=== PATIENT | male | born 1975 | race Caucasian/White ===

== ENCOUNTER 2019-07-06 20:09 | Inpatient (IN) | payer OTHER ==
[2019-07-06] MEDS ORDERED: ONDANSETRON 4 MG/2 ML VIAL ONE (21:09)
[2019-07-06] MEDS ORDERED: NA CHLORIDE 0.9% 1,000 ML ONE ×2 (21:09→23:44)
[2019-07-06] MEDS ORDERED: HYDROMORPHONE HCL 1 MG/ML INJ ONE (21:09)
[2019-07-06 21:35] LABS: Absolute Lymphocytes (CBC) 2.1 K/uL (0.7-4.9); Basophils % 0.7 % (0-1.3); Hematocrit 50.4 % (39.6-49.0); Lymphocytes % 22.8 % (15.3-44.8); MPV 8.1 fL (7.6-11.3)
[2019-07-06] MEDS ORDERED: KETOROLAC 30 MG/ML INJ ONE (21:44)
[2019-07-06 22:13] LABS: Albumin 4.7 g/dL (3.4-5.0); Bilirubin Direct 0.2 mg/dL (0-0.2); Bilirubin Total 0.5 mg/dL (0.2-1.0); Potassium 3.9 mmol/L (3.5-5.1); Protein, Total 8.2 g/dL (6.4-8.2)
[2019-07-06 22:32] LABS: Urine Blood TRACE (NEG); Urine Glucose NEGATIVE (NEG); Urine Protein NEGATIVE (NEG); Urine Specific Gravity <1.005 (1.005-1.030)
[2019-07-06 23:23] LABS: Urine Bacteria <20 /HPF (NONE SEEN); Urine Culture Reflex Order NOT NEEDED; Urine RBC NONE SEEN /HPF (NONE SEEN)
--- NOTE | 2019-07-06 23:32 | ER ---
Nurse's Notes [facility] Name: Abelino Doe Age: 43 yrs Sex: Male : 1975 Arrival Date: 07/06/2019 Time: 20:14 Bed 19 Private MD: Diagnosis: Alcohol induced acute pancreatitis Presentation: 07/06 20:40 Presenting complaint: Patient states: Bilateral lower back pain, nausea, vomiting, aj1 chest pain. Patient appears agitated in triage, screaming at staff. Transition of care: patient was not received from another setting of care. Onset of symptoms was July 06, 2019. Risk Assessment: Do you want to hurt yourself or someone else? Patient reports no desire to harm self or others. Initial Sepsis Screen: Does the patient meet any 2 criteria? HR > 90 bpm. No. Patient's initial sepsis screen is negative. Does the patient have a suspected source of infection? No. Patient's initial sepsis screen is negative. Care prior to arrival: None. 20:40 Method Of Arrival: Ambulatory aj1 20:40 Acuity: MELISSA 2 aj1 Historical: - Allergies: 20:42 PENICILLINS; aj1 07/07 00:40 Sulfa (Sulfonamide Antibiotics); lp1 - PMHx: 07/06 20:42 Kidney stones; Myocardial infarction; aj1 - PSHx: 20:42 Lithotripsy; aj1 - Immunization history:: Adult Immunizations up to date. - Ebola Screening: : Patient denies travel to an Ebola-affected area in the 21 days before illness onset. - Social history:: Smoking status: Patient/guardian denies using tobacco. Screenin:15 Abuse screen: Denies threats or abuse. Denies injuries from another. Nutritional lp1 screening: No deficits noted. Tuberculosis screening: No symptoms or risk factors identified. Fall Risk None identified. Assessment: 21:00 General: Appears uncomfortable, Behavior is agitated, restless. Pain: Complains of pain lp1 in left low back and right low back Pain radiates to chest Pain currently is 10 out of 10 on a pain scale. Quality of pain is described as sharp, stabbing, Pain began gradually. Neuro: Level of Consciousness is awake, alert, obeys commands, Oriented to person, place, time, situation. Cardiovascular: Patient's skin is warm and dry. Respiratory: Respiratory effort is even, unlabored. GI: No signs and/or symptoms were reported involving the gastrointestinal system. : Reports burning with urination. EENT: No signs and/or symptoms were reported regarding the EENT system. Derm: Skin is pink, warm \\T\\ dry. Musculoskeletal: No deficits noted. 22:15 Reassessment: Patient appears calm at this time; Taken to CT. lp1 22:43 Reassessment: ultrasound at bedside. lp1 23:00 Reassessment: Patient complaint of pain returning at this time; Provider notified, no lp1 new orders at this time. 23:30 Reassessment: JORGE LUIS Willoughby at bedside to discuss results with patient and . lp1 Reassessment: Patient agitated after speaking with Provider; attempted to explain diagnosis to patient; Patient states "My pain is caused from my kidney stones and y'all aren't doing anything about it"; Informed of admission and diagnosis of pancreatitis, patient states "You know what, you can just get on out of here". 07/07 00:40 Reassessment: Attempted to call report at this time; nurse unavailable to take report. lp1 00:57 Reassessment: Attempted to call report to nurse, unavailable to take report. lp1 01:17 Reassessment: Patient noted to be eating chips at this time; Educated on NPO status, lp1 states "well I was hungry, I had to eat something". Vital Signs: 07/06 20:42 BP 166 / 143; Pulse 126; Resp 28; Temp 98.2; Pulse Ox 98% on R/A; Weight 72.57 kg (R); aj1 Height 5 ft. 9 in. (175.26 cm); Pain 10/10; 23:15 BP 141 / 95; Pulse 98; Resp 18; Temp 97.7(O); Pulse Ox 96% on R/A; Pain 10/10; lp1 07/07 01:32 BP 137 / 95; Pulse 90; Resp 18; Pulse Ox 97% on R/A; lp1 07/06 20:42 Body Mass Index 23.63 (72.57 kg, 175.26 cm) aj1 ED Course: 07/06 20:14 Patient arrived in ED. cl3 20:39 Pavithra Hayes, RN is Primary Nurse. aj1 20:41 Triage completed. aj1 20:42 Arm band placed on Patient placed in an exam room. aj1 20:44 Anthony Mansfield PA is PHCP. cp 20:44 Mynor Marks MD is Attending Physician. cp 21:00 Patient has correct armband on for positive identification. Pulse ox on. NIBP on. lp1 21:00 Patient maintains SpO2 saturation greater than 95% on room air. lp1 21:23 Initial lab(s) drawn, by me, sent to lab. Inserted saline lock: 20 gauge in right lt1 antecubital area, using aseptic technique. 22:44 CT completed. Patient tolerated procedure well. Patient moved back from CT. mw3 22:45 CT Stone Protocol In Process Unspecified. EDMS 22:57 Ultrasound completed. Patient tolerated well. Notified STAFF RESEARCH ASSOCIATE/PA . sg3 22:58 US Abdomen Limited: right upper quadrant In Process Unspecified. EDMS 23:31 Clayton Mendes MD is Hospitalizing Provider. cp 23:37 No provider procedures requiring assistance completed. Patient admitted, IV remains in lp1 place. Administered Medications: 21:20 Drug: Zofran 4 mg Route: IVP; Site: right antecubital; fc 22:00 Follow up: Response: No adverse reaction lp1 21:20 Drug: NS 0.9% 1000 ml Route: IV; Rate: 1 bolus; Site: right antecubital; fc 22:45 Follow up: IV Status: Completed infusion; IV Intake: 1000ml lp1 21:24 Drug: Dilaudid 1 mg {Note: RASS 0.} Route: IVP; Site: right antecubital; fc 22:00 Follow up: Response: Pain is unchanged, physician notified lp1 21:46 Drug: TORadol 30 mg Route: IVP; Site: right antecubital; fc 22:44 Follow up: Response: Pain is decreased lp1 23:58 Drug: Dilaudid 0.5 mg {Note: Rass score 0.} Route: IVP; Site: right antecubital; jb4 07/07 01:00 Follow up: Response: No adverse reaction; Pain is decreased; RASS: Alert and Calm (0) lp1 00:00 Drug: NS 0.9% 1000 ml Route: IV; Rate: 1 bolus; Site: right antecubital; jb4 01:00 Follow up: IV Status: Completed infusion; IV Intake: 1000ml lp1 Intake: 07/06 22:45 IV: 1000ml; Total: 1000ml. lp1 07/07 01:00 IV: 1000ml; Total: 2000ml. lp1 Outcome: 07/06 23:32 Decision to Hospitalize by Provider. cp 23:41 Condition: stable lp1 23:41 Instructed on the need for admit. 07/07 01:17 Admitted to Tele accompanied by tech, via wheelchair, room 427, with chart, Report lp1 called to LUZ Rivera 01:33 Patient left the ED. lp1 Signatures: Dispatcher [employer] EDMS Pavithra Hayes RN RN aj1 Betsy Remy RN RN Demetra Ordonez RN RN lp1 Anthony Mansfield PA PA cp Bryson, James RN RN jb4 Leonel, Martha sg3 Rachael Frederick mw3 Sonia, Misty lt1 Ruby Pichardo cl3 Corrections: (The following items were deleted from the chart) 07/06 22:53 19:20 NS 0.9% 1000 ml IV at 1 bolus in right antecubital fc fc 22:54 19:20 Zofran 4 mg IVP in right antecubital fc fc 22:54 22:00 Response: No adverse reaction lp1 fc 22:55 19:24 Dilaudid 1 mg IVP in right antecubital fc fc 22:55 22:00 Response: No adverse reaction; Pain is unchanged, physician notified; RASS: fc Restless (+1) lp1
--- NOTE | 2019-07-06 23:33 | EDPHYS ---
Physician Documentation [facility] Name: Abelino Doe Age: 43 yrs Sex: Male : 1975 Arrival Date: 07/06/2019 Time: 20:14 Bed 19 Private MD: ED Physician Mynor Marks HPI: 07/06 21:10 This 43 yrs old Male presents to ER via Ambulatory with complaints of Chest cp Pain, Possible Kidney Stone. 21:10 The patient presents with pain that is chronic, with no known mechanism of injury, cp patient reports history of bilateral kidney stones. Onset: The symptoms/episode began/occurred last month. 21:10 Associated signs and symptoms: Pertinent positives: abdominal pain. Severity of cp symptoms: in the emergency department the symptoms are actually worse, markedly. Historical: - Allergies: 20:42 PENICILLINS; aj1 07/07 00:40 Sulfa (Sulfonamide Antibiotics); lp1 - PMHx: 07/06 20:42 Kidney stones; Myocardial infarction; aj1 - PSHx: 20:42 Lithotripsy; aj1 - Immunization history:: Adult Immunizations up to date. - Ebola Screening: : Patient denies travel to an Ebola-affected area in the 21 days before illness onset. - Social history:: Smoking status: Patient/guardian denies using tobacco. ROS: 21:20 Constitutional: Negative for body aches, chills, fever, poor PO intake. cp 21:20 Eyes: Negative for injury, pain, redness, and discharge. cp 21:20 Cardiovascular: Positive for chest pain, Negative for palpitations. cp 21:20 Respiratory: Negative for cough, shortness of breath, wheezing. 21:20 Abdomen/GI: Positive for abdominal pain, Negative for vomiting, diarrhea, constipation, black/tarry stool, rectal bleeding. 21:20 Back: Positive for pain at rest, pain with movement. 21:20 : Negative for urinary symptoms, testicular pain 21:20 Neuro: Negative for altered mental status, dizziness, headache, weakness. 21:20 All other systems are negative. Exam: 20:45 ECG was reviewed by the Attending Physician. cp 21:25 Head/Face: Normocephalic, atraumatic. cp 21:25 Eyes: Periorbital structures: appear normal, Conjunctiva: normal, no exudate, no cp injection, Sclera: no appreciated abnormality, Lids and lashes: appear normal, bilaterally. 21:25 ENT: External ear(s): are unremarkable, Nose: is normal, Mouth: Lips: moist, Oral mucosa: pink and intact, moist, Posterior pharynx: is normal, airway is patent, no erythema, no exudate. 21:25 Chest/axilla: Inspection: normal, Palpation: is normal, no crepitus, no tenderness. 21:25 Constitutional: The patient appears in no acute distress, alert, awake, cp non-diaphoretic, well developed, well nourished, agitated, restless, uncomfortable. 21:25 Cardiovascular: Rate: tachycardic, Rhythm: regular, Edema: is not appreciated, JVD: is not appreciated. 21:25 Respiratory: the patient does not display signs of respiratory distress, Respirations: normal, no use of accessory muscles, no retractions, no splinting, no tachypnea, labored breathing, is not present, Breath sounds: are clear throughout, no decreased breath sounds, no stridor, no wheezing. 21:25 Abdomen/GI: Inspection: abdomen appears normal, Bowel sounds: active, all quadrants, Palpation: soft, in all quadrants, severe abdominal tenderness, in the epigastric area, rebound tenderness, is not appreciated, voluntary guarding, is elicited in the epigastric area. 21:25 Back: pain, that is severe, of the mid back area, ROM is painful. 21:25 Skin: cellulitis, is not appreciated, no rash present. 21:25 Neuro: Orientation: to person, place \T\ time. Mentation: is normal, Motor: moves all fours, strength is normal. Vital Signs: 20:42 BP 166 / 143; Pulse 126; Resp 28; Temp 98.2; Pulse Ox 98% on R/A; Weight 72.57 kg (R); aj1 Height 5 ft. 9 in. (175.26 cm); Pain 10/10; 23:15 BP 141 / 95; Pulse 98; Resp 18; Temp 97.7(O); Pulse Ox 96% on R/A; Pain 10/10; lp1 07/07 01:32 BP 137 / 95; Pulse 90; Resp 18; Pulse Ox 97% on R/A; lp1 07/06 20:42 Body Mass Index 23.63 (72.57 kg, 175.26 cm) aj1 MDM: 07/06 20:54 Patient medically screened. cp 21:45 Differential diagnosis: Abdominal Aortic Aneurysm Cholelithiasis chronic back pain, cp Peptic Ulcer Pyelonephritis Renal Infarction Ureterolithiasis pancreatitis. 23:30 Physician consultation: Clayton Mendes MD was called at 23:25, was contacted at 23:25, regarding admission, to the telemetry unit. patient's condition. 23:31 Data reviewed: vital signs, nurses notes, lab test result(s), EKG, radiologic studies, cp CT scan, and as a result, I will admit patient. 23:31 Counseling: I had a detailed discussion with the patient and/or guardian regarding: the cp historical points, exam findings, and any diagnostic results supporting the discharge/admit diagnosis, lab results, radiology results, the need for further work-up and treatment in the hospital. Response to treatment: the patient's symptoms have markedly improved after treatment. 07/06 21:04 Order name: Urine Microscopic Only; Complete Time: 23:24 cp 07/06 21:32 Order name: Basic Metabolic Panel; Complete Time: 22:16 EDMS 07/06 22:16 Interpretation: Normal except: GLUC 178; GFR 72. 07/06 21:32 Order name: Liver (Hepatic) Function; Complete Time: 22:16 EDMS 07/06 22:17 Interpretation: Normal except: AST 436; ALT 284; ALK 144. 07/06 21:32 Order name: Lipase; Complete Time: 22:16 EDMS 07/06 22:17 Interpretation: Abnormal: LIP 711. 07/06 21:32 Order name: Creatinine (Radiology Only); Complete Time: 22:16 EDMS 07/06 21:32 Order name: CBC with Automated Diff; Complete Time: 21:40 EDMS 07/06 21:40 Interpretation: Normal except: HCT 50.4; MCV 96.9; MCH 33.2; MN% 12.6. 07/06 22:26 Order name: Urine Dipstick--Ancillary (enter results); Complete Time: 23:13 em1 07/06 23:13 Interpretation: Normal except: UBLD TRACE. 07/06 23:29 Order name: ETOH Level cp 07/07 00:28 Order name: Comprehensive Metabolic Panel EDMS 07/06 21:04 Order name: CT Stone Protocol cp 07/06 21:04 Order name: IV Saline Lock; Complete Time: 21:23 cp 07/06 21:04 Order name: Labs collected and sent; Complete Time: 21:23 cp 07/06 21:04 Order name: EKG; Complete Time: 21:49 cp 07/06 21:04 Order name: EKG - Nurse/Tech; Complete Time: 21:23 cp 07/06 21:04 Order name: Urine Dipstick-Ancillary (obtain specimen); Complete Time: 22:25 cp 07/06 22:31 Order name: US Abdomen Limited: right upper quadrant cp 07/07 00:30 Order name: CONS Physician Consult EDIA 07/07 00:30 Order name: NPO EDIA 07/07 00:30 Order name: Hepatitis Panel,Acute EDMS 07/06 23:14 Order name: Vital Signs: please update to include temp; Complete Time: 23:36 cp EC:45 Rate is 118 beats/min. Rhythm is regular. UT interval is normal. QRS interval is cp normal. QT interval is normal. Interpreted by me. Reviewed by me. Administered Medications: 21:20 Drug: Zofran 4 mg Route: IVP; Site: right antecubital; fc 22:00 Follow up: Response: No adverse reaction lp1 21:20 Drug: NS 0.9% 1000 ml Route: IV; Rate: 1 bolus; Site: right antecubital; fc 22:45 Follow up: IV Status: Completed infusion; IV Intake: 1000ml lp1 21:24 Drug: Dilaudid 1 mg {Note: RASS 0.} Route: IVP; Site: right antecubital; fc 22:00 Follow up: Response: Pain is unchanged, physician notified lp1 21:46 Drug: TORadol 30 mg Route: IVP; Site: right antecubital; fc 22:44 Follow up: Response: Pain is decreased lp1 23:58 Drug: Dilaudid 0.5 mg {Note: Rass score 0.} Route: IVP; Site: right antecubital; jb4 07/07 01:00 Follow up: Response: No adverse reaction; Pain is decreased; RASS: Alert and Calm (0) lp1 00:00 Drug: NS 0.9% 1000 ml Route: IV; Rate: 1 bolus; Site: right antecubital; jb4 01:00 Follow up: IV Status: Completed infusion; IV Intake: 1000ml lp1 Disposition: 01:45 Chart complete. cp 04:35 Co-signature as Attending Physician, Mynor Marks MD I agree with the assessment and tw4 plan of care. Disposition: 07/06/19 23:32 Hospitalization ordered by Clayton Mendes for Inpatient Admission. Preliminary diagnosis is Alcohol induced acute pancreatitis. - Bed requested for Telemetry/MedSurg (Inpatient). - Status is Inpatient Admission. lp1 - Condition is Stable. - Problem is new. - Symptoms have improved. UTI on Admission? No Signatures: Dispatcher [employer] EDIA Pavithra Hayes RN RN aj1 Betsy Remy RN LUZ Demetra Ordonez RN RN lp1 Anthony Mansfield PA PA cp Garcia, Cindy, RN RN cg Bryson, James, RN RN jb4 Mynor Marks MD MD tw4 Corrections: (The following items were deleted from the chart) 07/06 22:07 21:49 CBC+H.LAB.BRZ ordered. EDIA EDIA 22:07 21:49 Creatinine for Radiology+C.LAB.BRZ ordered. EDIA EDIA 22:08 21:49 BASIC METABOLIC PANEL+C.LAB.BRZ ordered. EDIA EDIA 22:08 21:49 HEPATIC FUNCTION+C.LAB.BRZ ordered. EDIA EDIA 22:08 21:49 LIPASE+C.LAB.BRZ ordered. EDIA EDIA 07/07 00:35 07/06 23:32 Hospitalization Ordered by Clayton Mendes MD for Inpatient Admission. cg Preliminary diagnosis is Alcohol induced acute pancreatitis. Bed requested for Telemetry/MedSurg (Inpatient). Status is Inpatient Admission. Condition is Stable. Problem is new. Symptoms have improved. UTI on Admission? No. cp 07/07 01:33 00:35 07/06/2019 23:32 Hospitalization Ordered by Clayton Mendes MD for Inpatient lp1 Admission. Preliminary diagnosis is Alcohol induced acute pancreatitis. Bed requested for Telemetry/MedSurg (Inpatient). Status is Inpatient Admission. Condition is Stable. Problem is new. Symptoms have improved. UTI on Admission? No. cg 23:18 07/06 21:25 Constitutional: The patient appears in no acute distress, alert, awake, cp non-diaphoretic, non-toxic, well developed, well nourished, uncomfortable, cp
[2019-07-06] MEDS ORDERED: HYDROMORPHONE HCL 0.5 MG/0.5 ML INJ ONE (23:44)
--- NOTE | 2019-07-07 00:10 | P.HP ---
Certification for Inpatient Patient admitted to: Inpatient With expected LOS: >2 Midnights Patient will require the following post-hospital care: None Practitioner: I am a practitioner with admitting privileges, knowledge of patient current condition, hospital course, and medical plan of care. Services: Services provided to patient in accordance with Admission requirements found in Title 42 Section 412.3 of the Code of Federal Regulations Patient History Date of Service: 07/07/19 Reason for admission: ABDOMINAL PAIN History of Present Illness: 43 yo old male with past medical history of kidney stones status post lithotripsy, and also history of CAD as per the familyCame to ER with worsening of abdominal pain mostly located on the right upper abdomen radiating to the back and also to the lower abdomen. He states that the pain is very similar to the ureteric colic he had previously. Sharp, 10/10 in severity . Associated with nausea and dysuria. Denies any fever no chills The pain is very severe as the patient is tired of living he states. Patient was assessed in the ER and found to have elevated liver enzymes and elevated lipase and was admitted for further management. At the time of interview patient is in moderate distress because of the pain, denies any hemorrhage. Has frequency of micturition as well. patient is afebrile He is a poor historian and states that he is frustrated with the this condition . Allergies Sulfa (Sulfonamide Antibiotics) Allergy (Unverified 11/06/15 16:47) Unknown PENICILLINS Allergy (Uncoded 11/06/15 16:47) Unknown Home medications list reviewed: Yes - Past Medical/Surgical History Has patient received pneumonia vaccine in the past: No Past Medical History: Reviewed- Non-Contributory -: Kidney Stones -: CAD -: Lithotripsy - Family History Family History: Reviewed- Non-Contributory - Social History Smoking Status: Current some day smoker Alcohol use: Yes Place of Residence: Home Review of Systems 10-point ROS is otherwise unremarkable General: Weakness, Malaise Gastrointestinal: Nausea, Abdominal Pain, No Distention Genitourinary: Dysuria, Frequency Physical Examination - Vital Signs Temperature: 97.6 F Blood Pressure: 142/82 Pulse: 82 Pulse Ox (%): 94 - Physical Exam General: Alert, Oriented x3, Moderate distress HEENT: Atraumatic, Normocephalic Neck: Supple, JVD not distended Respiratory: Clear to auscultation bilaterally, Normal air movement Cardiovascular: No edema, Regular rate/rhythm, Normal S1 S2 Capillary refill: <2 Seconds Gastrointestinal: Other (Diffuse abdominal tenderness, tender in the right upper quadrant, ), Tenderness Musculoskeletal: No clubbing, No erythema, No tenderness Integumentary: No rashes, No tenderness/swelling Neurological: Normal speech, Normal strength at 5/5 x4 extr, Sensation intact Lymphatics: No axilla or inguinal lymphadenopathy Urinary: Other (No bladder distention) External genitalia: Deferred Rectal: Deferred - Studies Laboratory Data (last 24 hrs) 07/06/19 21:21: Creatinine 1.09 07/06/19 21:21: WBC 9.3, Hgb 17.3, Hct 50.4 H, Plt Count 212 07/06/19 21:21: Sodium 137, Potassium 3.9, BUN 9, Creatinine 1.12, Glucose 178 H , Total Bilirubin 0.5, AST 436 H*, ALT 284 H, Alkaline Phosphatase 144 H, Lipase 711 H 07/06/19 21:04: Creatinine Cancelled 07/06/19 21:04: WBC Cancelled, Hgb Cancelled, Hct Cancelled, Plt Count Cancelled 07/06/19 21:04: Sodium Cancelled, Potassium Cancelled, BUN Cancelled, Creatinine Cancelled, Glucose Cancelled, Total Bilirubin Cancelled, AST Cancelled, ALT Cancelled, Alkaline Phosphatase Cancelled, Lipase Cancelled Assessment and Plan - Problems (Diagnosis) (1) Acute pancreatitis Current Visit: Yes Status: Acute Plan: start on pain control Keep him NPO for now Aggressive hydration Start on PPI Awaiting ultrasound of the abdomen and also CT findings will get lipid panel to rule out hypertriglyceridemia Advised alcohol cessation (2) Elevated LFTs Current Visit: Yes Status: Acute Plan: Monitor LFTs serially IV hydration will get to a hepatitis panel Ultrasound and CT report is pending May need MRCP if gallstones is present and CBD is dilated GI consult (3) Nephrocalcinosis Current Visit: Yes Status: Chronic Plan: Continue pain medications added Flomax Aggressive hydration (4) History of coronary artery disease Current Visit: Yes Status: Chronic Plan: Continue home medications Monitor closely Discharge Plan: Home Plan to discharge in: 72 Hours - Advance Directives Does patient have a Living Will: No Does patient have a Durable POA for Healthcare: No Physician Review: Patient Assessed, Agree with Above Assessment and Plan Time Spent Managing Pts Care (In Minutes): 55
[2019-07-07] MEDS ORDERED: ACETAMINOPHEN 500 MG TAB PO PRN (00:23)
[2019-07-07] MEDS ORDERED: KETOROLAC 30 MG/ML INJ IV PRN (00:28)
[2019-07-07] MEDS ORDERED: SODIUM CHLORIDE 0.9% 10ML INJ IV PRN (00:28)
[2019-07-07] MEDS ORDERED: HYDROMORPHONE HCL 1 MG/ML INJ IV PRN (00:28)
[2019-07-07] MEDS ORDERED: MAGNES/ALUMIN/SIMET 30ML UCUP PO ONE (01:57)
[2019-07-07] MEDS: PANTOPRAZOLE 40 MG INJ IVP SCH ×3 (02:05→21:27)
[2019-07-07] MEDS: Ringers Lactate 1,000 ML IV SCH ×5 (02:05→21:26)
[2019-07-07] MEDS: HYDROMORPHONE HCL 2 MG/ML inj IV PRN ×3 (03:50→20:40)
[2019-07-07] MEDS: NICOTINE 21 MG/PAT TD SCH (03:51)
[2019-07-07 05:25] VITALS: BMI 24.6
[2019-07-07] MEDS ORDERED: LORAZEPAM 1 MG TABLET PO ONE (07:34)
[2019-07-07] MEDS: TAMSULOSIN 0.4 MG SR CAP PO SCH (08:31)
[2019-07-07] MEDS ORDERED: ENOXAPARIN 40 MG/0.4 ML SQ SCH (09:00)
[2019-07-07] MEDS ORDERED: FOLIC ACID 1 MG, MULTIVITAMINS INJ 10 ML, THIAMINE HCL 100 MG in NA CHLORIDE 0.9% 1,000 ML IV ONE (09:00)
[2019-07-07] MEDS ORDERED: POTASSIUM CL SA 10 MEQ TAB PO ONE (09:00)
--- NOTE | 2019-07-07 09:17 | RAD REPORT ---
EXAM DESCRIPTION: US - Abdomen Exam Limited - 07/06/2019 10:58 pm CLINICAL HISTORY: ABD PAIN COMPARISON: Stone Protocol dated 07/06/2019 FINDINGS: No gallstones, sludge or other abnormalities within the gallbladder lumen. There is no wal l thickening or pericholecystic fluid. No common duct stone or biliary tree dilatation identified. IMPRESSION: Normal gallbladder and biliary tree ultrasound.
--- NOTE | 2019-07-07 09:43 | EKG ---
Test Date: 2019-07-06 Test Time: 20:36:58 Ccie: KATE MEASUREMENT RESULTS: Intervals: Rate: 118 ID: [id number] QRSD: 66 QT: 296 QTc: 414 [place]: P: 54 ID: [id number] QRS: 44 T: 36 INTERPRETIVE STATEMENTS: Sinus tachycardia Septal infarct, age undetermined Abnormal ECG No previous ECG available for comparison Electronically Signed On 07-07-19 09:43:01 CDT by Dariel Lockhart
[2019-07-07] MEDS ORDERED: LORazepam 2 MG/ML VIAL IV ONE (09:49)
[2019-07-07] MEDS: ONDANSETRON 4 MG/2 ML VIAL IV PRN (10:27)
[2019-07-07] MEDS ORDERED: LORazepam 2 MG/ML VIAL IV PRN ×2 (10:39→14:55)
[2019-07-07] MEDS ORDERED: FLUMAZENIL 0.1 MG/ML (5 mL VIAL) IV PRN (14:55)
[2019-07-07] MEDS ORDERED: HALOPERIDOL LACT 5 MG/ML INJ IM PRN (14:55)
--- NOTE | 2019-07-07 15:30 | PN ---
Date of Progress Note: 07/07/2019 Subjective: Patient seen and examined. Chart reviewed and case discussed with RN. at the beds glen. Patient actively withdrawing from alcohol. Medications: List reviewed. Physical Examination: Vital Signs: Temperature 97.8, heart rate 109, blood pressure 132/87, respirations 18, O2 94% on [place] m air. General: Awake, alert oriented x3, in moderate distress due to delirium tremens. CV: S1, S2. Sinus tachycardia. Peripheral pulses present. Respiratory: Moving air well bilaterally. No wheezing or stridor. Gastrointestinal: Abdomen is soft. Mild tenderness to palpation. No distention. Bowel sounds posi tive. Extremities: No clubbing, cyanosis, or edema. Neurologic: Cranial nerves 2 through 12 intact grossly. No focal neurological deficit. Patient is having tremors from withdrawal. Skin: No rashes. Normal skin turgor. Laboratory Data: Pending. Assessment: A 43-year-old male with: 1.Acute alcoholic pancreatitis. We will continue with aggressive IV fluid hydration. Keep n.p.o. Consult GI. Follow up on CT scan and ultrasound report. 2.Active alcohol withdrawal symptoms with delirium tremens. Patient is hallucinating as well. [place]co hol level is 358 yesterday when he came in. Patient is n.p.o. Unable to take Librium. We will adju st IV Ativan taper. Continue with banana bag. Patient is counseled. 3.History of nephrolithiasis, status post lithotripsy. Patient does report some oliguria. 4.Oliguria with possible urinary obstruction. Follow up on CT scan results. May need Urology consu ltation. CT scan does show bilateral nonobstructing calculi, but no hydronephrosis or ureteral calcu li. Bilateral perinephric stranding likely chronic, possible pyelonephritis, fatty replacement in th e liver. 5.Deep vein thrombosis prophylaxis. Patient refusing Lovenox. States he has a history of bleeding. Patient does have fatty liver disease due to his alcoholism. Platelets are 212. No apparent bleed ing at this time. Again, patient refusing Lovenox. We will switch to SCDs, counseled. Plan: Overall guarded prognosis. Continue to monitor for signs of alcohol withdrawal using CIWA pro tocol. May need to be switched to ICU if worsening. SA/MODL Voice ID: [id number] Report ID: [id number]
[2019-07-07] MEDS: LORazepam 2 MG/ML VIAL IV SCH ×2 (17:55→21:27)
[2019-07-08] MEDS: LORazepam 2 MG/ML VIAL IV SCH ×6 (00:53→20:30)
[2019-07-08] MEDS: HYDROMORPHONE HCL 2 MG/ML inj IV PRN ×2 (03:30→08:57)
[2019-07-08] MEDS: Ringers Lactate 1,000 ML IV SCH ×5 (03:30→22:00)
[2019-07-08 05:18] LABS: Absolute Lymphocytes (CBC) 1.2 K/uL (0.7-4.9); Basophils % 0.3 % (0-1.3); Hematocrit 39.6 % (39.6-49.0); Lymphocytes % 13.6 % (15.3-44.8); MPV 9.1 fL (7.6-11.3); RBC Red Blood Cell Count 4.16 M/uL (4.33-5.43)
[2019-07-08 05:19] LABS: Protime INR 1.04
[2019-07-08 06:09] LABS: ALT/SGPT 159 U/L (12-78); AST/SGOT 150 U/L (15-37); Albumin 3.9 g/dL (3.4-5.0); Alkaline Phosphatase 111 U/L (45-117); BUN Blood Urea Nitrogen 7 mg/dL (7-18); Bicarbonate 28 mmol/L (21-32); Bilirubin Total 1.1 mg/dL (0.2-1.0); Glucose Level 75 mg/dL (74-106); HDL Cholesterol 49 mg/dL (40-60); LDL Cholesterol, Calculated 154 (<130); Magnesium 2.1 mg/dL (1.8-2.4); Phosphorus 2.9 mg/dL (2.5-4.9); Protein, Total 6.5 g/dL (6.4-8.2); Sodium Level 137 mmol/L (136-145)
[2019-07-08] MEDS: TAMSULOSIN 0.4 MG SR CAP PO SCH (08:58)
[2019-07-08] MEDS: NICOTINE 21 MG/PAT TD SCH (08:58)
[2019-07-08] MEDS: PANTOPRAZOLE 40 MG INJ IVP SCH ×2 (08:58→20:30)
[2019-07-08] MEDS: ONDANSETRON 4 MG/2 ML VIAL IV PRN (09:07)
[2019-07-08] MEDS ORDERED: MORPHINE 2 MG/ML SYR IV PRN (09:40)
[2019-07-08] MEDS ORDERED: FENTANYL 50 MCG/PATCH TD SCH (13:00)
[2019-07-08] MEDS: chlordiazePOXIDE HCl 25 MG CAP PO SCH ×2 (13:13→20:29)
--- NOTE | 2019-07-08 13:18 | RAD REPORT ---
EXAM DESCRIPTION: CT - Stone Protocol - 07/06/2019 10:44 pm CLINICAL HISTORY: 43 years Male bilateral flank pain COMPARISON: None. TECHNIQUE: Contiguous axial images obtained through the abdomen and pelvis without IV contrast. Refo rmatted images obtained. This exam was performed according to our department optimization program which includes automated exp osure control, adjustment of the mA and/or kv according to patient size and/or use of iterative recon struction technique. FINDINGS: The lung bases are clear. There is fatty replacement in the liver. The spleen and pancreas appear unremarkable. No adrenal masses. There is bilateral perinephric stranding likely chronic. Clinical and laboratory correlation could be obtained to exclude possibility of pyelonephritis. There are multiple bilateral nonobstructing renal calculi. No hydronephrosis or ureteral calculi. The gallbladder is visualized. No aneurysmal dilatation of the aorta. No bowel obstruction. The appendix appears unremarkable. No significant free pelvic fluid. Small fat-containing umbilical hernia. IMPRESSION: There are bilateral nonobstructing calculi. No hydronephrosis or ureteral calculi. There is bilateral perinephric stranding likely chronic. Clinical and laboratory correlation could be obtained to exclude the possibility of pyelonephritis. Fatty replacement in the liver. Electronically signed by: Juan M Cohen MD 07/06/2019 11:11 PM CDT Due to temporary technical issues with the PACS/Fluency reporting system, reports are being signed by the in house radiologist as a courtesy to ensure prompt reporting. The interpreting radiologist is f ully responsible for the content of the report.
--- NOTE | 2019-07-08 13:40 | P.PN ---
Subjective Date of Service: 07/08/19 Chief Complaint: ABDOMINAL PAIN Subjective: No new changes He was drowsy but easily arousable during my examination. He has mild hand tremors. He denies any abdominal pain. Stated he had some sleep last. He denies any hallucination. He has been a fever. No nausea or vomiting. Review of Systems Unremarkable Physical Examination - Vital Signs Temperature: 98.6 F Blood Pressure: 140/75 Pulse: 121 Respirations: 12 Pulse Ox (%): 97 - Physical Exam General: In no apparent distress, Oriented x3 HEENT: Atraumatic, Normocephalic, Mucous membr. moist/pink Neck: Supple, JVD not distended, No Thyromegaly Respiratory: Clear to auscultation bilaterally, Normal air movement Cardiovascular: No edema, Normal pulses, Other (Tachycardia) Capillary refill: <2 Seconds Gastrointestinal: Normal bowel sounds, Soft and benign, No tenderness Musculoskeletal: No clubbing, No swelling, No erythema Integumentary: No rashes Neurological: Normal speech, Normal strength at 5/5 x4 extr Lymphatics: No axilla or inguinal lymphadenopathy Assessment And Plan - Current Problems (Diagnosis) (1) Acute pancreatitis Current Visit: Yes Status: Acute (2) Alcohol withdrawal delirium Current Visit: Yes Status: Acute (3) Elevated LFTs Current Visit: Yes Status: Acute (4) Nephrocalcinosis Current Visit: Yes Status: Chronic - Plan Acute pancreatitis likely secondary to alcohol. Continue supportive measures with IV Ringers lactate. Patient is still significantly tachycardic. Continue CIWA with scheduled Ativan taper and p.r.n. Ativan. Serial lipase. LFTs trending down Monitor LFTs He has good urine output. Follow up non-obstructive kidney stones as outpatient. Start clear liquid diet. IV morphine p.r.n. for pain
[2019-07-08 20:48] VITALS: O2SAT 95
[2019-07-09] MEDS: LORazepam 2 MG/ML VIAL IV SCH ×2 (00:05→04:08)
[2019-07-09] MEDS: Ringers Lactate 1,000 ML IV SCH (01:04)
[2019-07-09 01:15] VITALS: TEMP 98
[2019-07-09 04:54] LABS: Absolute Lymphocytes (CBC) 1.1 K/uL (0.7-4.9); Basophils % 0.4 % (0-1.3); Hematocrit 40.6 % (39.6-49.0); Lymphocytes % 14.2 % (15.3-44.8); MPV 9.4 fL (7.6-11.3); RBC Red Blood Cell Count 4.24 M/uL (4.33-5.43)
[2019-07-09 05:07] VITALS: BP 118/78
[2019-07-09 05:07] LABS: ALT/SGPT 121 U/L (12-78); AST/SGOT 100 U/L (15-37); Albumin 3.7 g/dL (3.4-5.0); Alkaline Phosphatase 121 U/L (45-117); BUN Blood Urea Nitrogen 6 mg/dL (7-18); Bicarbonate 29 mmol/L (21-32); Bilirubin Total 0.7 mg/dL (0.2-1.0); Glucose Level 101 mg/dL (74-106); Lipase 249 U/L (73-393); Potassium 3.9 mmol/L (3.5-5.1); Protein, Total 6.7 g/dL (6.4-8.2); Sodium Level 141 mmol/L (136-145)
[2019-07-09] MEDS ORDERED: THIAMINE 200 MG/2 ML INJ IVP SCH (09:00)
[2019-07-09] MEDS ORDERED: LORazepam 2 MG/ML VIAL IV SCH (19:00)
[2019-07-10 14:43] LABS: HBsAG Nonreactive (Nonreactive)
--- NOTE | 2019-07-12 04:47 | P.DS ---
Discharge Date: 07/09/19 Disposition: AMA-LEFT AGAINST MEDICAL ADVIC Reason for Admission: ABDOMINAL PAIN Brief History of Present Illness: 43 yo old male with past medical history of kidney stones status post lithotripsy, and also history of CAD as per the familyCame to ER with worsening of abdominal pain mostly located on the right upper abdomen radiating to the back and also to the lower abdomen. He states that the pain is very similar to the ureteric colic he had previously. Sharp, 10/ in severity . Associated with nausea and dysuria. Denies any fever no chills The pain is very severe as the patient is tired of living he states. Patient was assessed in the ER and found to have elevated liver enzymes and elevated lipase and was admitted for further management. At the time of interview patient is in moderate distress because of the pain, denies any hemorrhage. Has frequency of micturition as well. patient is afebrile He is a poor historian and states that he is frustrated with the this condition . Hospital Course: Patient felt like he was doing better and decided to leave against medical advice. Vital Signs/Physical Exam: Temp Pulse Resp BP Pulse Ox 98.0 F 95 H 18 118/78 93 07/09/19 04:00 07/09/19 04:00 07/09/19 04:00 07/09/19 04:00 07/09/19 04:00 General: Alert, In no apparent distress, Oriented x3 Laboratory Data at Discharge: WBC 8.0 K/uL (4.3-10.9) 07/09/19 03:55 Hgb 14.1 g/dL (13.6-17.9) 07/09/19 03:55 Hct 40.6 % (39.6-49.0) 07/09/19 03:55 Plt Count 127 K/uL (152-406) L 07/09/19 03:55 PT 12.2 SECONDS (9.5-12.5) 07/08/19 04:44 INR 1.04 07/08/19 04:44 Sodium 141 mmol/L (136-145) 07/09/19 03:55 Potassium 3.9 mmol/L (3.5-5.1) 07/09/19 03:55 BUN 6 mg/dL (7-18) L 07/09/19 03:55 Creatinine 0.82 mg/dL (0.55-1.3) 07/09/19 03:55 Glucose 101 mg/dL (74-106) 07/09/19 03:55 Phosphorus 2.9 mg/dL (2.5-4.9) 07/08/19 04:44 Magnesium 2.1 mg/dL (1.8-2.4) 07/08/19 04:44 Total Bilirubin 0.7 mg/dL (0.2-1.0) 07/09/19 03:55 AST 100 U/L (15-37) H 07/09/19 03:55 ALT 121 U/L (12-78) H 07/09/19 03:55 Alkaline Phosphatase 121 U/L (45-117) H 07/09/19 03:55 Triglycerides 170 mg/dL (<150) H 07/08/19 04:44 Cholesterol 237 mg/dL (<200) H 07/08/19 04:44 HDL Cholesterol 49 mg/dL (40-60) 07/08/19 04:44 Cholesterol/HDL Ratio 4.84 07/08/19 04:44 Lipase 249 U/L (73-393) 07/09/19 03:55 Home Medications: NK [No Home Meds] 07/07/19 Patient Discharge Instructions: Patient left against medical advise Time spent managing pt's care (in minutes): 10
== END 2019-07-09 06:15 | disposition left against medical advice (07) | DRG 439 ==
LOC: ER 20:09 → ERHOLD 07-07 00:25 → 4TH 07-07 01:17 → 3RD-ICU 07-07 20:00 → 4TH 07-08 10:40
PROVIDERS: ADMIT Family Medicine; ATTEND Family Medicine
DX: K85.20 Alcohol induced acute pancreatitis without necrosis or infection (principal); F10.231 Alcohol dependence with withdrawal delirium; E83.59 Other disorders of calcium metabolism; N29 Other disorders of kidney and ureter in diseases classified elsewhere; R79.89 Other specified abnormal findings of blood chemistry; I25.10 Atherosclerotic heart disease of native coronary artery without angina pectoris; Z53.29 Procedure and treatment not carried out because of patient's decision for other reasons; R34 Anuria and oliguria; Z87.442 Personal history of urinary calculi; Z88.0 Allergy status to penicillin; Z88.2 Allergy status to sulfonamides
CPT/HCPCS: 36415; 74176; 76377; 76705; 80048; 80053; 80061; 80074; 80076; 80320; 81003; 81015; 83690; 83735; 84100; 85025; 85610; 93005; 94760; 96361; 96374; 96375; 99285; C9113; J1170; J1630; J1650; J2405; J3411; J7030; J7120